=== PATIENT | male | born 1990 | race Caucasian/White ===

== ENCOUNTER 2016-10-19 14:25 | Emergency (ER) | payer BC ==
[2016-10-19 14:31] VITALS: TEMP 99; O2SAT 97
--- NOTE | 2016-10-19 15:29 | DX ---
Left wrist series 4 views 1445 hours. History: Fell on outstretched hand while snowboarding. Findings: There is complex nondisplaced distal left radial fracture with intra-articular involvement. Tiny chip or avulsion fracture is also suspected along the distal tip of the ulnar styloid. No addit ional fractures are seen about the left wrist. Joint spaces are normal. Soft tissue swelling is evide nt. There is incidental bone island base of the left second metacarpal. Impression: 1. Nondisplaced complex distal left radial fracture with intra-articular involvement. 2. Possible tiny chip or avulsion fracture distal tip of the ulnar styloid.
--- NOTE | 2016-10-19 15:39 | EDPHY ---
H & P Time Seen by Provider: 10/19/16 14:37 HPI/ROS: HPI Left wrist injury. 26-year-old male by private vehicle. He is right-hand dominant. He was snowboarding. He fell on an outstretched left hand. He complains of isolated left wrist pain. He did not strike his head. No loss of consciousness. Denies any other injury or complaint. ROS: Constitutional: No fever, no chills. No weakness. Musculoskeletal: No back pain. No neck pain. As above. No other extremity pain. Skin: No rashes. No lacerations. Neurological: No headache. No focal weakness or altered sensation. Past medical history: None. Social history: Here by himself. Nonsmoker. Physical Exam: General Appearance: Alert, no distress. This patient is responding to questions appropriately and in full sentences. This patient appears well- hydrated and well-nourished. Head: Normocephalic atraumatic. Face: Facial bones are stable on palpation. Eyes: Pupils equal and round and reactive to light, no pallor or injection. No lid erythema or edema. Neurological: Motor sensory function is intact. Cranial nerves are normal. Cerebellar function intact. Skin: Warm and dry, no rashes. No lacerations, abrasions or contusions. Musculoskeletal: Neck is supple and nontender. The trachea is midline. No midline cervical tenderness on palpation. Left wrist/hand exam: Distal radius deformity. Hematoma under dorsal proximal aspect of the left hand. Distal radial and ulnar pulses normal. Good capillary refill and sensation in all digits of left hand. Skin is intact. Extremities are symmetrical, full range of motion. All joints in the bilateral upper and bilateral lower extremities range without pain or impingement. No tenderness on palpation of the long bones in the bilateral upper and bilateral lower extremities. Psychiatric: No agitation. No depression. Database: EKG: Imaging: Left wrist and hand series x-ray: Significant for a comminuted distal radius fracture with intra-articular involvement and minimal displacement. Interpreted by me. Procedures: Procedure: Splint placement. A ortho glass sugar-tong splint was applied to the left wrist. After application of the splint I returned and re-examined the patient. The splint was adequately immobilizing the joint and distal to the splint the patient's circulation and sensation was intact. Emergency department course: After my evaluation, the patient was sent for x-rays as noted above. 3:42 p.m., orthopedics paged. 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 Baxter. He reviewed the x-rays. He does not feel that emergency department manipulation/ reduction is required at this time. He recommended splinting and follow-up in his office tomorrow afternoon. 4:10 p.m., patient re-evaluated. He is splinted. Repeat assessment, left hand neurovascularly intact. He is comfortable in the splint. Plan for follow-up with Dr. Baxter as above was discussed with him. He will be able to see Dr. Baxter tomorrow afternoon as recommended. Return to emergency department precautions reviewed with him. All of his questions were answered. He was discharged in good condition. He will be prescribed a short course of Vicodin as well as ibuprofen for pain control. Differential Diagnosis: The differential diagnosis on this patient includes but is not limited to distal radius fracture. Carpal fracture, dislocation unlikely. This represents a partial list of diagnoses considered. These considerations are based on history, physical exam, past history, reassessment and diagnostic testing. Smoking Status: Never smoked Constitutional: Initial Vital Signs Temperature (C) 37.2 C 10/19/16 14:30 Heart Rate 72 10/19/16 14:30 Respiratory Rate 15 10/19/16 14:30 Blood Pressure 137/87 H 10/19/16 14:30 O2 Sat (%) 97 10/19/16 14:30 O2 Delivery Mode Room Air Allergies/Adverse Reactions: No Known Allergies Allergy (Unverified 10/19/16 14:30) Home Medications: Medication Instructions Recorded NK [No Known Home Meds] 10/19/16 Departure - Departure Disposition: Home, Routine, Self-Care Clinical Impression: Distal radius fracture, left Condition: Good Instructions: Wrist Fracture in Adults (ED) Additional Instructions: Read and follow provided instructions. Follow-up with orthopedic surgeon, Dr. Baxter, tomorrow afternoon for re- evaluation and further management. Call his office at 9:00 a.m. for appointment time. I spoke with him in the emergency department today. He told me he would be able to see you tomorrow afternoon. Ibuprofen dosin mg every 6 hours with meals for the next 3 days only. Lindley/Percocet dosin-2 every 4-6 [address] for [address] not drive on this medication. Return to the emergency department for worsening pain, discoloration, swelling or other serious concerns. Referrals: Brenna Baxter MD [Medical Doctor] - As per Instructions
[2016-10-19] MEDS ORDERED: HYDROCOD/APAP 5/325 PREPACK#6 BTL TAKEHOME ONE (16:01)
[2016-10-19 16:22] VITALS: BP 137/85; PULSE 81; RESP 16
== END 2016-10-19 16:22 | disposition home or self-care (01) ==
DX: S52.502A Unspecified fracture of the lower end of left radius, initial encounter for closed fracture (principal); V00.311A Fall from snowboard, initial encounter; Y99.8 Other external cause status; Y93.23 Activity, snow (alpine) (downhill) skiing, snowboarding, sledding, tobogganing and snow tubing
CPT/HCPCS: A4565

== ENCOUNTER → 2018-08-02 | Outpatient (CLI) | payer OTHER | LOC: EDSTATUS 09:12 → BMCLAB 09:12 → BMCIMAGING 09:13 | PROVIDERS: ATTEND Family Medicine | DX: M25.512 Pain in left shoulder (principal) ==